=== PATIENT | male | born 1960 | race American Indian/Alaskan Native ===

== ENCOUNTER 2017-08-17 11:43 | Outpatient (CLI) | payer OTHER ==
--- NOTE | 2017-08-17 12:50 | XRay Report ---
XRAY CHEST TWO VIEWS: 08/17/17 11:43:00 CLINICAL: Cough. COMPARISON: None FINDINGS: Normal heart and pulmonary vasculature. The lungs are normally expanded and clear.Mild degenerative change in the spine. IMPRESSION: No acute cardiopulmonary process.
== END 2017-08-17 11:44 | disposition home or self-care (01) ==
LOC: SPVIMAG 11:43
DX: R05 Cough (principal); M47.894 Other spondylosis, thoracic region
CPT/HCPCS: 71046